=== PATIENT | male | born 1980 ===

== ENCOUNTER 2017-07-30 18:19 | Emergency (ER) | payer MEDICAID ==
[2017-07-30 20:00] VITALS: BP 148/100; PULSE 107; RESP 20; TEMP 98.5; O2SAT 98
--- NOTE | 2017-07-30 20:27 | C.PDOC ---
History Of Present Illness Tomas Liang is a 37 year old male, with a past medical history of heroin abuse, who present to the emergency department requesting detox. Patient is also complaining of episodes of diarrhea but denies any abdominal pain, fever, chills or vomiting. Patient states last time he used heroin was yesterday. No further medical complaints. PMD: None provided. Time Seen by Provider: 07/30/17 20:10 Chief Complaint (Nursing): Substance Abuse History Per: Patient History/Exam Limitations: no limitations Onset/Duration Of Symptoms: Days (x1) Current Symptoms Are (Timing): Still Present Suicide/Self Injury Attempted (Context): None Associated Symptoms: Other (diarrhea) Past Medical History Reviewed: Historical Data, Nursing Documentation, Vital Signs Vital Signs: Last Vital Signs Temp 98.5 F 07/30/17 19:56 Pulse 107 H 07/30/17 19:56 Resp 20 07/30/17 19:56 BP 148/100 H 07/30/17 19:56 Pulse Ox 98 07/30/17 21:15 - Medical History PMH: Asthma Surgical History: No Surg Hx Family History: States: Unknown Family Hx - Social History Hx Tobacco Use: Yes (light smoker <10 cigarettes daily) Hx Alcohol Use: No Hx Substance Use: Yes Review Of Systems Constitutional: Negative for: Fever, Chills Gastrointestinal: Positive for: Diarrhea. Negative for: Vomiting, Abdominal Pain Physical Exam - Physical Exam Skin: Normal Color, Warm, Dry, No Diaphoretic Head: Atraumatic Eye(s): bilateral: Normal Inspection Neck: Normal, Normal ROM, Supple Gastrointestinal/Abdominal: Normal Exam, Soft, No Tenderness Extremity: Normal ROM, No Deformity, No Swelling Neurological/Psych: Oriented x3 (alert) Gait: Steady ED Course And Treatment O2 Sat by Pulse Oximetry: 98 (RA) Pulse Ox Interpretation: Normal Medical Decision Making Medical Decision Making: Initial Impression: Drug abuse Initial Plan: --There is currently no detox but spoke with crisis to place him on the list for pre-screen 20:25 --Patient is medically stable, and requires no further treatment in the ED at this time.Pt was informed that there no more detox beds available tonight. Patient will be discharged home- given number of crisis dept as well. Counseling was provided and all questions were answered regarding diagnosis and need for follow up. There is agreement to discharge plan. Return if symptoms persist or worsen. Disposition Counseled Patient/Family Regarding: Diagnosis, Need For Followup - Disposition Disposition: HOME/ ROUTINE Disposition Time: 20:25 Condition: STABLE Additional Instructions: YOUR INFORMATION WAS GIVEN TO CRISIS DEPARTMENT SO YOU MAY BE CALLED WITH QUESTIONS FOR POSSIBLE DETOX Please CALL CRISIS AT [phone] RETURN TO ER IF WORSE Instructions: Narcotic Abuse (ED) Forms: [employer] (Libyan) Print Language: NAMIBIAN - Clinical Impression Clinical Impression: Drug abuse - Scribe Statement [place] All medical record entries made by the Derekibe were at my direction and personally dictated by me. I have reviewed the chart and agree that the record accurately reflects my personal performance of the history, physical exam, medical decision making, and the department course for this patient. I have also personally directed, reviewed, and agree with the discharge instructions and disposition.
== END 2017-07-30 20:46 | disposition home or self-care (01) ==
LOC: C.ER 18:19
DX: F19.10 Other psychoactive substance abuse, uncomplicated (principal)